=== PATIENT | female | born 1945 | race Caucasian/White ===

== ENCOUNTER 2016-09-19 10:16 | Outpatient (CLI) | payer OTHER ==
[~2016-09-19 10:16] MED LIST: ALTOPREV20 MG PO; ASPIRIN ADULT L81 MG PO; ATORVASTATIN CA20 MG PO; BENADRYL25 MG PO; CARVEDILOL25 MG PO; CITALOPRAM HYDR20 MG PO; COREG3.125 MG PO; COUMADIN1 MG PO; COUMADIN5 MG PO; FERROUS SULFAT325 M1 PO; FUROSEMIDE20 MG PO; GLUCOPHAGE500 MG PO; IRON325 MG PO; ISOSORBIDE MONO30 MG PO; LASIX20 MG PO; LISINOPRIL10 MG PO; LOVASTATIN10 MG PO; LOVENOX60 MG/0.6 SC; MICRO-K 10 EQU10 MEQ PO; PRILOSEC20 MG PO
--- NOTE | 2016-09-19 14:25 | DIAGNOSTIC IMAGING REPORT ---
REFERRING PHYSICIAN/PROVIDER: Dalton Koenig MD CONSULTING MARINE DIESEL MECHANIC: Jerald Shafer MD PROCEDURE: M-mode 2D echocardiography with spectral and color flow Doppler TECHNICAL QUALITY: Study quality was technically adequate. INDICATION: CHF RHYTHM DURING PROCEDURE: The patient was in normal sinus rhythm during the exam. INTERPRETATIONS: LEFT VENTRICLE: Left ventricular wall thickness is mildly increased. Left ventricle is moderately dilated with the left ventricular end-diastolic diameter is 6.4 cm. Left ventricular systolic function is mildly reduced with an ejection fraction of 45-50% with hypokinesis along the basal inferior and inferolateral wall. Spectral Doppler of the mitral valve shows a normal E/A ratio. RIGHT VENTRICLE: The right ventricle grossly appears normal in size with probable normal systolic function. ATRIA: Both atria are normal in size. The interatrial septum is intact with no evidence for an atrial septal defect. MITRAL VALVE: The mitral valve is normal in structure and function. There is mild mitral regurgitation. AORTIC VALVE: The aortic valve is trileaflet and opens well. There is no hemodynamically significant valvular aortic stenosis. There is trace aortic regurgitation. TRICUSPID VALVE: The tricuspid valve is normal in structure and function. No tricuspid regurgitation. Pulmonary artery pressures could not be estimated because of the lack of a measurable TR jet velocity. PULMONIC VALVE: The pulmonic valve is not well seen, but is grossly normal. There is trace or physiologic amount of pulmonic regurgitation. GREAT VESSELS: The aorta root is normal size. The ascending aorta is mildly enlarged at 3.63 cm. The IVC is of normal diameter and collapses greater than 50% with the sniff. This suggests a low right atrial pressure of 3 mmHg. PERICARDIUM: There is no pericardial effusion. MISCELLANOUS: There is a hepatic cyst noted. IMPRESSION: 1. There is mildly reduced LV systolic function with an ejection fraction of 45-50%. There are regional wall motion abnormalities might suggest ischemic heart disease. 2. The right ventricle grossly appears normal in size with probable normal systolic function. 3. Both atria are normal in size. 4. There is mild mitral regurgitation but otherwise no other significant valvular disease. 5. The ascending aorta is mildly enlarged at 3.63 cm. 6. There is a hepatic cyst noted. Consider liver ultrasound for further investigation.
== END 2016-09-19 23:00 ==
LOC: US SRH 10:16
DX: I50.9 Heart failure, unspecified (principal); K76.89 Other specified diseases of liver